=== PATIENT | male | born 1950 | race Caucasian/White ===

== ENCOUNTER → 2018-01-09 | Outpatient (CLI) | payer MEDICARE, OTHER | LOC: M.RAD 09:16 | DX: D71 Functional disorders of polymorphonuclear neutrophils (principal); X08.00XA Exposure to bed fire due to unspecified burning material, initial encounter; Y93.89 Activity, other specified; Y92.89 Other specified places as the place of occurrence of the external cause; Y99.8 Other external cause status ==

== ENCOUNTER → 2018-04-28 | Outpatient (CLI) | payer MEDICARE, OTHER | LOC: M.RAD 15:33 | DX: M25.774 Osteophyte, right foot (principal); M25.471 Effusion, right ankle ==

== ENCOUNTER → 2018-08-31 | Outpatient (CLI) | payer MEDICARE, OTHER | LOC: M.ULTRA 08-27 10:44 | DX: S22.41XG Multiple fractures of ribs, right side, subsequent encounter for fracture with delayed healing (principal); D71 Functional disorders of polymorphonuclear neutrophils; D73.89 Other diseases of spleen; K57.30 Diverticulosis of large intestine without perforation or abscess without bleeding; M41.86 Other forms of scoliosis, lumbar region; K44.9 Diaphragmatic hernia without obstruction or gangrene; R07.89 Other chest pain; R94.5 Abnormal results of liver function studies; X58.XXXD Exposure to other specified factors, subsequent encounter ==

== ENCOUNTER → 2021-02-14 | Outpatient (CLI) | payer MEDICARE, OTHER ==
[~2021-02-14] MED LIST: ASA81BEC PO; C-10001000 M1 PO; GLUCOSAMIN-CHO1 EACH PO; LIPITOR 20 MG T20 M1 PO; OMEPRAZOLE40 MG PO; SUPER THERAVIT1 EACH PO; VIAGRA100 MG PO; VITAMIN B-121000 MC2 SUBLING; ZOLOFT25 MG PO; cholecalciferol PO
--- NOTE | 2021-02-14 16:50 | CARDNUC ---
[place] [address] CARDIAC NUCLEAR IMAGING REPORT Name: CADNE BARTLETT Malinda Room: [facility]#: [id number] Admission: 02/14/21 Attend Phys: Natalee Hayes, Discharge: Date of : 52 Date of Service: 02/14/21 1650 Report #: [id number] THIS REPORT FOR: cc: Bill Earl MD, Dean L. MD Biggs, F. Douglas MD [facility] ~ APPROVED REPORT Study performed: 02/14/2021 14:30:56 Exam: Nuclear Stress Test Indication: Chest pain with fatigue and nausea, Dyspnea Patient Location: Out-Patient Stress Tech: Ilsa Menjivar Stress Nurse: Destini VALENCIA Tech:RAMSEY Morin Ht: 5 ft 7 in Wt: 190 lbs BSA: 1.98 m2 BMI: 29.75 Medical History Medical History: Chest pain with nausea and fatigue, dyspnea, covington's esophagus, dysthmia, sinus bradycardia, HTN, HLD, FHX CAD Medications: Atorvastatin, sildenafil, ASA 81 Mg, NTG. Allergies: No known drug allergies Cardiac Risk Factors: Age, FHX of CAD, HTN, Hyperlipidemia, Sinus Bradycardia. Previous Cardiac Procedures: None Pretest Chest Pain Characteristics: No chest pain Exercise History: Physically active Physical Disabilities: None noted. Meds Held (24 hrs): NTG, Sildenafil. Stress Test Details Stress Test: Exercise stress testing was performed using a Brandon protocol. HR Resting HR: 57 bpm Max Heart Rate (APMHR): 151 bpm Max HR Achieved: 152 bpm Target HR (85% APMHR): 128 bpm % of APMHR: 100 Recovery HR: 88 bpm HR response to stress: [place] [address] CARDIAC NUCLEAR IMAGING REPORT Name: CANDE BARTLETT Room: [facility]#: [id number] Admission: 02/14/21 Attend Phys: Natalee Hayes, Discharge: Date of : 52 Date of Service: 02/14/21 1650 Report #: [id number] Resting BP: 135/77 mmHg Max BP: 212/93 mmHg BP response to stress: Abnormal hypertensive response to stress. ECG Resting ECG: Sinus Rhythm, normal EKG Stress ECG: Sinus tachycardia, nonspecific ST-T abnormalities ST Change: Upsloping ST depression Maximum ST Deviation: 1 mm Arrhythmia: None Recovery ECG: Sinus tachycardia otherwise normal Recovery ST Change: None Recovery Arrhythmia: None Clinical Reason for Termination: Completed protocol, Maximal effort, Target HR achieved. Stress Symptoms: Dyspnea, Leg Fatigue. Exercise duration: 9 min 22 sec Exercise capacity: 10.73 METs Overall Exercise Capacity for Age: Superior Nurse Comments A 70 year old male presented for a treadmill nuclear stress test. Treadmill tolerated to beginning of stage 4, target HR achieved. Recovery unremarkable. Patient was stable and stated he felt good when escorted to Nuclear Medicine for imaging. Exercise Capacity - Superior. Stress ECG Conclusion ECG: Non-ischemic Clinical: Non-ischemic Normal stacie EKG stress test. NM EXAM: Myocardial Perfusion REST/STRESS Imaging Protocol: Rest Tc-99m/Stress Tc-99m 1 day Resting Data Rest SPECT myocardial perfusion imaging was performed in supine position 30 minutes following the intravenous injection of 10.7 mCi of Tc-99m Sestamibi. Time of rest injection: 1255 Date: 02/14/2021 The images were gated to evaluate regional [place] [address] CARDIAC NUCLEAR IMAGING REPORT Name: CANDE BARTLETT Room: [facility]#: [id number] Admission: 02/14/21 Attend Phys: Natalee Hayes, Discharge: Date of : 52 Date of Service: 02/14/21 1650 Report #: [id number] left ventricular ejection fraction. Administration Route: IV Administration Site: Left AC Exercise Stress At peak stress, the patient was injected intravenously with 33.0mCi of Tc-99m Sestamibi. Time of stress injection: 1440 Date: 02/14/2021 Administration Route: IV Administration Site: Left AC Gated Stress SPECT was performed 30 minutes after stress injection. The images were gated to evaluate regional wall motion and calculate left ventricular ejection fraction. Prone imaging was performed. Study Quality Study: Good Artifact: Mild Diaphragmatic artifact Lung Uptake: Normal Study Data At rest, the left ventricular ejection fraction was 65%.. Post stress, the left ventricular ejection was 69%.. SSS: 0 SRS: 0 SDS: 0 TID = 0.71. Perfusion The resting study demonstrated a small mild inferior defect. The post-rest images demonstrate a very small very mild inferior defect that was less impressive than that seen at rest. Prone images were obtained and were normal. There were no defects seen. There were no reversible defects seen there was no evidence of myocardial ischemia. The images do suggest diaphragmatic attenuation artifact. Images were reviewed using [place]. Wall Motion Normal left ventricular wall motion. Nuclear Conclusion ECG Findings: negative for ischemia Clinical Findings: negative for ischemia Nuclear Findings: negative for ischemia Exercise Capacity: [place] [address] CARDIAC NUCLEAR IMAGING REPORT Name: CANDE BARTLETT Room: [facility]#: [id number] Admission: 02/14/21 Attend Phys: Natalee Hayes, Discharge: Date of : 52 Date of Service: 02/14/21 1650 Report #: [id number] Left Ventricular Function: normal Risk Study: low Normal study. No scintigraphic evidence for myocardial ischemia or scar. <Conclusion> ECG: Non-ischemic Clinical: Non-ischemic Normal stacie EKG stress test. <ELECTRONICALLY SIGNED> By: Natalee Hayes MD, [facility] 02/14/211649 49 49 Natalee Hayes MD, FACC /INF
== END ==
LOC: M.NUC 12:03 → M.CRD 02-16 08:00 → M.NUC 02-16 08:00
PROVIDERS: ATTEND Internal Medicine
DX: R06.00 Dyspnea, unspecified (principal); R07.9 Chest pain, unspecified

== ENCOUNTER 2021-05-18 11:48 | Emergency (ER) | payer MEDICARE, OTHER ==
[~2021-05-18] VITALS: Ht 170.2 cm; Wt 85.3 kg
[2021-05-18] MEDS ORDERED: ZINC30 MG PO (12:03)
[2021-05-18] MEDS ORDERED: TESSALON PERLE100 M1 PO (12:51)
[2021-05-18 13:18] VITALS: BP 122/76
== END 2021-05-18 13:18 | disposition home or self-care (01) ==
LOC: M.ERS 11:48
DX: U07.1 COVID-19 (principal); Z79.899 Other long term (current) drug therapy; Z79.82 Long term (current) use of aspirin